=== PATIENT | male | born 1975 | race Caucasian/White ===

== ENCOUNTER 2017-02-04 15:26 | Inpatient (IN) | payer SELFPAY ==
[~2017-02-04] VITALS: Ht 180.3 cm; Wt 64.9 kg
[~2017-02-04 15:26] MED LIST: ACET325T21 PO; ASEN5TAB7 SL; BUSP5TAB PO; CALC600T4 PO; CARI350T PO; CEFU500T46 PO; CEPH-264 PO; DEXL60CA2 PO; DIVA500T4 PO; DOXY100C2 PO; FLUT1DIS3 IH; GABA-586 PO; GABA600T2 PO; INDO50CA PO; IPRA4AER IH; LOSA100T6 PO; OLAN20TA3 PO; OXYC5TAB95 PO; OXYM10TA28 PO; OXYM20TA17 PO; PANT40TA3 PO; QUET300T5 PO; TRAZ100T12 PO; VALP250D PO
[2017-02-04 17:56] VITALS: BP 105/65
[2017-02-04] MEDS: HYDROmorphone 2 MG TABLET PO PRN ×2 (18:37→22:52)
[2017-02-04] MEDS ORDERED: VANCOMYCIN 1.75 GM in IV DEXTROSE 5% 500 ML IV ONE (19:00)
[2017-02-04] MEDS: VANCOMYCIN PER PHARMACY MC PRN (19:06)
[2017-02-04 19:30] VITALS: BP 112/71
[2017-02-04] MEDS: NICOTINE 21MG PATCH. TD SCH (21:51)
[2017-02-04] MEDS: VANCOMYCIN 1 GM in IV DEXTROSE 5% 250 ML IV SCH (21:51)
[2017-02-04] MEDS: ACETAMINOPHEN 500 MG TABLET PO PRN (21:56)
[2017-02-04 23:18] VITALS: BP 119/67
[2017-02-04] MEDS: HYDROCORTISONE 1% TOPICAL OINTMENT 30GM TUBE. TP PRN (23:51)
[2017-02-05] MEDS: HYDROmorphone 2 MG TABLET PO PRN ×5 (03:16→21:15)
[2017-02-05 03:23] VITALS: BP 98/63
[2017-02-05] MEDS: VANCOMYCIN 1 GM in IV DEXTROSE 5% 250 ML IV SCH ×3 (04:38→21:04)
[2017-02-05] MEDS: ACETAMINOPHEN 500 MG TABLET PO PRN ×2 (04:46→21:04)
[2017-02-05 05:07] LABS: BASO % 1 % (0-3); EOS % 1 % (0-3); HEMATOCRIT 35.2 % (39.0-53.0); HEMOGLOBIN 11.6 g/dL (13.0-17.5); LYMPH # 2.2 x10^3/uL (1.0-4.8); LYMPH % 43 % (24-48); MEAN CORPUSCULAR HEMOGLOBIN 26 pg (25-35); MEAN CORPUSCULAR HGB CONC 33 g/dL (31-37); MEAN CORPUSCULAR VOLUME 77 fL (79-100); MONO % 8 % (0-9); NEUT % 47 % (31-73); PLATELET COUNT 240 x10^3/uL (140-400); RED BLOOD COUNT 4.55 x10^6/uL (4.30-5.70); RED CELL DISTRIBUTION WIDTH 18.3 % (11.5-14.5); WHITE BLOOD COUNT 5.1 x10^3/uL (4.0-11.0)
[2017-02-05 05:19] LABS: ALBUMIN 2.5 g/dL (3.4-5.0); ALBUMIN/GLOBULIN RATIO 0.6 (1.0-1.7); CALCIUM 8.3 mg/dL (8.5-10.1); CREATININE 0.8 mg/dL (0.7-1.3); GFR 106.5; POTASSIUM 4.1 mmol/L (3.5-5.1); TOTAL BILIRUBIN 0.2 mg/dL (0.2-1.0); TOTAL PROTEIN 6.6 g/dL (6.4-8.2)
[2017-02-05 07:00] VITALS: BP 106/73
[2017-02-05] MEDS: NICOTINE 21MG PATCH. TD SCH (08:17)
[2017-02-05] MEDS ORDERED: FLU VACC QS2017-18 (36MOS+)/PF 0.5 ML SYRINGE. VAX IM ONE (10:00)
--- NOTE | 2017-02-05 10:46 | PDOC2 ---
CONSULT Date of Consult Date of Consult DATE: 02/05/17 TIME: 10:42 History of Present Illness Reason for Visit: Pt is a 42 year old male who was admitted due to a suspected chin abscess/ cellulitis. He states the area swelled up significantly. The ER MD at [facility] did I and D which did help some, but don't think its complete. He is able to eat without difficulty and only complains of left index finger pain. Past Medical History Cardiovascular: HTN Psych: Bipolar, Depression, Schizophrenia Musculoskeletal: Other Past Surgical History Past Surgical History inguinal hernia repair Past Surgical History: No pertinent history Family History Family History: Coronary Artery Disease Social History ALCOHOL: none Drugs: Other Lives: Alone Current Medications Current Medications Current Medications Vancomycin HCl (Vanco Per Pharmacy) 1 each PRN DAILY PRN MC SEE COMMENTS Last administered on 02/04/17 19:06; Start 02/04/17 at 18:00 Acetaminophen (Tylenol) 1,000 mg PRN QID PRN PO MILD PAIN Last administered on 02/05/17 04:46; Start 02/04/17 at 18:00 Hydromorphone HCl (Dilaudid) 2 mg PRN Q4HRS PRN PO PAIN Last administered on 08:18; Start 02/04/17 at 18:00 Vancomycin HCl 1.75 gm/Dextrose 500 ml @ 250 mls/hr 1X ONCE IV ; Start at 19:00; Stop 02/04/17 at 20:59; Status Cancel Vancomycin HCl 1 gm/Dextrose 250 ml @ 250 mls/hr Q8H IV Last administered on 02/05/17 04:38; Start 02/04/17 at 20:00 Vancomycin HCl 1 each 1X ONCE MC ; Start 02/05/17 at 11:30; Stop 02/05/17 at 11:31 Nicotine (Nicoderm Cq 21mg) 1 patch DAILY TD Last administered on 02/05/17 08 :17; Start 02/04/17 at 20:00 Hydrocortisone (Cortaid) 1 rubi PRN QID PRN TP ITCHING Last administered on 23:51; Start 02/04/17 at 22:00 Influenza Virus Vaccine Quadrival (Fluarix Quad [id number] Syringe) 0.5 ml ONCE ONCE VAX IM ; Start 02/05/17 at 10:00; Stop 02/05/17 at 10:01; Status DC Active Scripts Active Cefuroxime (Cefuroxime Axetil) 500 Mg Tablet 1 Tab PO QID Reported Soma (Carisoprodol) 350 Mg Tablet 1 Tab PO BID Protonix (Pantoprazole Sodium) 40 Mg Tablet.dr 1 Tab PO DAILY Indomethacin 50 Mg Capsule 50 Mg PO BID Opana Er (Oxymorphone Hcl) 20 Mg Tab.er.12h 20 Mg PO BID Seroquel (Quetiapine Fumarate) 300 Mg Tablet 1 Tab PO HS Losartan Potassium 100 Mg Tablet 50 Mg PO HS Zyprexa (Olanzapine) 20 Mg Tablet 20 Mg PO DAILY Depakote Er (Divalproex Sodium) 500 Mg Tab.er.24h 1 Tab PO BID Allergies Allergies: Coded Allergies: oxycodone (Verified Allergy, Intermediate, 10/06/16) tolerates morphine ROS General: No: Chills, Night Sweats, Fatigue, Malaise, Appetite, Other PSYCHOLOGICAL ROS: No: Anxiety, Behavioral Disorder, Concentration difficultie , Decreased libido, Depression, Disorientation, Hallucinations, Hostility, Irritablity, Memory difficulties, Mood Swings, Obsessive thoughts, Physical abuse, Sexual abuse, Sleep disturbances, Suicidal ideation, Other Eyes: No Blurry vision, No Decreased vision, No Double vision, No Dry eyes, No Excessive tearing, No Eye Pain, No Itchy Eyes, No Loss of vision, No Photophobia , No Scotomata, No Uses contacts, No Uses glasses, No Other HEENT: YES: Other (chin abscess as per HPI) ALLERGY AND IMMUNOLOGY: No: Hives, Insect Bite Sensitivity, Itchy/Watery Eyes, Nasal Congestion, Post Nasal Drip, Seasonal Allergies, Other Hematological and Lymphatic: No: Bleeding Problems, Blood Clots, Blood Transfusions, Brusing, Night Sweats, Pallor, Swollen Lymph Nodes, Other ENDOCRINE: No: Breast Changes, Galactorrhea, Hair Pattern Changes, Hot Flashes , Malaise/lethargy, Mood Swings, Palpitations, Polydipsia/polyuria, Skin Changes , Temperature Intolerance, Unexpected Weight Changes, Other Respiratory: No: Cough, Hemoptysis, Orthopnea, Pleuritic Pain, Shortness of breath, SOB with excertion, Sputum Changes, Stridor, Tachypnea, Wheezing, Other Cardiovascular: No Chest Pain, No Palpitations, No Orthopnea, No Paroxysmal Noc. Dyspnea, No Edema, No Lt Headedness, No Other Gastrointestinal: No Nausea, No Vomiting, No Abdominal Pain, No Diarrhea, No Constipation, No Melena, No Hematochezia, No Other Musculoskeletal: Yes Other (L index finger pain) Neurological: No Behavorial Changes, No Bowel/Bladder ControlChng, No Confusion , No Dizziness, No Gait Disturbance, No Headaches, No Impaired Coord/balance, No Memory Loss, No Numbness/Tingling, No Seizures, No Speech Problems, No Tremors, No Visual Changes, No Weakness, No Other Skin: No Dry Skin, No Eczema, No Hair Changes, No Lumps, No Mole Changes, No Mottling, No Nail Changes, No Pruritus, No Rash, No Skin Lesion Changes, No Other, No Acne Physical Exam General: Alert, Oriented X3 HEENT: Atraumatic, Other (chin with area of erythema, small fluctuance, do not see intraoral involvement) Lungs: Clear to auscultation Heart: Regular rate Abdomen: Normal bowel sounds Extremities: Other (L index finger with pain/swelling) Neuro: Normal speech Psych/Mental Status: Mental status NL Vitals VITALS Vital Signs Date Time Temp Pulse Resp B/P (MAP) Pulse Ox O2 Delivery O2 Flow Rate FiO2 02/05/17 08:18 97 Room Air 02/05/17 07:00 97.8 56 18 106/73 (84) 97.8 Labs Labs Laboratory Tests Test 02/05/17 04:30 White Blood Count 5.1 x10^3/uL (4.0-11.0) Red Blood Count 4.55 x10^6/uL (4.30-5.70) Hemoglobin 11.6 g/dL (13.0-17.5) Hematocrit 35.2 % (39.0-53.0) Mean Corpuscular Volume 77 fL (79-100) Mean Corpuscular Hemoglobin 26 pg (25-35) Mean Corpuscular Hemoglobin Concent 33 g/dL (31-37) Red Cell Distribution Width 18.3 % (11.5-14.5) Platelet Count 240 x10^3/uL (140-400) Neutrophils (%) (Auto) 47 % (31-73) Lymphocytes (%) (Auto) 43 % (24-48) Monocytes (%) (Auto) 8 % (0-9) Eosinophils (%) (Auto) 1 % (0-3) Basophils (%) (Auto) 1 % (0-3) Neutrophils # (Auto) 2.4 x10^3uL (1.8-7.7) Lymphocytes # (Auto) 2.2 x10^3/uL (1.0-4.8) Monocytes # (Auto) 0.4 x10^3/uL (0.0-1.1) Eosinophils # (Auto) 0.1 x10^3/uL (0.0-0.7) Basophils # (Auto) 0.0 x10^3/uL (0.0-0.2) Sodium Level 139 mmol/L (136-145) Potassium Level 4.1 mmol/L (3.5-5.1) Chloride Level 104 mmol/L (98-107) Carbon Dioxide Level 30 mmol/L (21-32) Anion Gap 5 (6-14) Blood Urea Nitrogen 13 mg/dL (8-26) Creatinine 0.8 mg/dL (0.7-1.3) Estimated GFR (Cockcroft-Gault) 106.5 BUN/Creatinine Ratio 16 (6-20) Glucose Level 90 mg/dL (70-99) Calcium Level 8.3 mg/dL (8.5-10.1) Total Bilirubin 0.2 mg/dL (0.2-1.0) Aspartate Amino Transf (AST/SGOT) 31 U/L (15-37) Alanine Aminotransferase (ALT/SGPT) 40 U/L (16-63) Alkaline Phosphatase 93 U/L (46-116) Total Protein 6.6 g/dL (6.4-8.2) Albumin 2.5 g/dL (3.4-5.0) Albumin/Globulin Ratio 0.6 (1.0-1.7) Laboratory Tests Test 02/05/17 04:30 White Blood Count 5.1 x10^3/uL (4.0-11.0) Red Blood Count 4.55 x10^6/uL (4.30-5.70) Hemoglobin 11.6 g/dL (13.0-17.5) Hematocrit 35.2 % (39.0-53.0) Mean Corpuscular Volume 77 fL (79-100) Mean Corpuscular Hemoglobin 26 pg (25-35) Mean Corpuscular Hemoglobin Concent 33 g/dL (31-37) Red Cell Distribution Width 18.3 % (11.5-14.5) Platelet Count 240 x10^3/uL (140-400) Neutrophils (%) (Auto) 47 % (31-73) Lymphocytes (%) (Auto) 43 % (24-48) Monocytes (%) (Auto) 8 % (0-9) Eosinophils (%) (Auto) 1 % (0-3) Basophils (%) (Auto) 1 % (0-3) Neutrophils # (Auto) 2.4 x10^3uL (1.8-7.7) Lymphocytes # (Auto) 2.2 x10^3/uL (1.0-4.8) Monocytes # (Auto) 0.4 x10^3/uL (0.0-1.1) Eosinophils # (Auto) 0.1 x10^3/uL (0.0-0.7) Basophils # (Auto) 0.0 x10^3/uL (0.0-0.2) Sodium Level 139 mmol/L (136-145) Potassium Level 4.1 mmol/L (3.5-5.1) Chloride Level 104 mmol/L (98-107) Carbon Dioxide Level 30 mmol/L (21-32) Anion Gap 5 (6-14) Blood Urea Nitrogen 13 mg/dL (8-26) Creatinine 0.8 mg/dL (0.7-1.3) Estimated GFR (Cockcroft-Gault) 106.5 BUN/Creatinine Ratio 16 (6-20) Glucose Level 90 mg/dL (70-99) Calcium Level 8.3 mg/dL (8.5-10.1) Total Bilirubin 0.2 mg/dL (0.2-1.0) Aspartate Amino Transf (AST/SGOT) 31 U/L (15-37) Alanine Aminotransferase (ALT/SGPT) 40 U/L (16-63) Alkaline Phosphatase 93 U/L (46-116) Total Protein 6.6 g/dL (6.4-8.2) Albumin 2.5 g/dL (3.4-5.0) Albumin/Globulin Ratio 0.6 (1.0-1.7) Assessment/Plan Assessment/Plan Chin abscess, pt on regular diet; will make NPO after midnight and plan drainage in AM; ask ortho to see for paronychia DELIA OROURKE MD Feb 05, 2017 10:46
[2017-02-05 11:00] VITALS: BP 105/70
--- NOTE | 2017-02-05 12:22 | HP ---
ADMIT DATE: 02/04/2017 HISTORY OF PRESENT ILLNESS: The patient is a 42-year-old male patient, whom I have seen yesterday at [facility]. He apparently was seen initially on 02/02/2017 where he presented with infection in his chin and also his right index finger stating that he had an MRSA infection in the past. At that time, clinical examination showed that he has a pointing abscess under his chin and that he attempted to drain on his own. The abscess appears to have started as some folliculitis. He does have adenopathy in the neck. 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 The abscess was incised by 11 blade, prepped with Betadine and incised and about 1 mL white pus was removed. The wounds were cleaned with Betadine and dressing applied. The patient was given a prescription for Bactrim-DS twice a day for 10 days with Polysporin ointment to be applied 4 times a day to both wounds, advised to keep them dry and clean. He did not even fill his prescription. He came back on 02/04/2017 complaining that the abscess is not healing and was admitted and apparently the chin area though in size is now becoming more swollen again. Culture tip was placed in the wound and was used to break up some of the loculation. About 10 mL of greenish pus was then drained and was sent for culture and sensitivity. However, the abscess needs to be incised and drained properly and as there are no surgeons in the hospital, the patient was transferred to [facility] to consult surgical team, to open this up and perhaps pack it with iodoform gauze to prevent recurrence. PAST MEDICAL HISTORY: Significant for depression, questionable schizoaffective disorder, severe osteoarthritis, left hip joint and hypertension. PAST SURGICAL HISTORY: Left eye surgery, incision and drainage of his chin abscess and left index finger abscess. ALLERGIES: HE IS ALLERGIC TO OXYCODONE. MEDICATIONS: He is currently on following medications: He is on Soma 350 mg twice a day, divalproex 500 mg twice a day, losartan potassium 100 mg once a day, olanzapine 20 mg once a day, oxymorphone 20 mg extended release twice a day, Protonix 40 mg once a day and quetiapine fumarate 300 mg once a day. He was started on IV vancomycin and was transferred here to continue with IV vancomycin for the pharmacy to adjust it. PHYSICAL EXAMINATION: GENERAL: On examining him today, he looked well and was clearly in no apparent respiratory distress, pale. No jaundice, cyanosis, or thyromegaly. No jugular venous distention. No limb edema. VITAL SIGNS: Her heart rate was 58, blood pressure was 98/63, temperature was 97.7, respiratory rate was 18 and oxygen saturation was 97%. HEAD, EYES, EARS, NOSE AND THROAT: Showed normocephalic, atraumatic. NECK: Showed he has chin abscess, is red, swollen, and tender to touch. HEART: Showed normal first and second heart sounds with no gallop, rub or murmur. CHEST: Clear to auscultation. No crepitation or rhonchi. ABDOMEN: Distended, soft, nontender. NEUROLOGIC: He was sleepy, but arousable. All cranial nerves intact. EXTREMITIES: He moves extremities without difficulty. SKIN: He has chin abscess and also left index finger paronychia that he claims as a sliver that went in and he was unable to retrieve it. LABORATORY DATA: Showed a serum sodium 139, potassium 4.1, chloride 104, bicarbonate 30, anion gap of 5, BUN 13, creatinine 0.8. Estimated GFR was 160 mL per minute. He has glucose of 90, calcium was 8.3. Total bilirubin, AST, ALT, alkaline phosphatase were normal. His total protein was 6.6, albumin 2.6. His white cell count was 5100, hemoglobin 11.6, hematocrit 35, MCV 77 and platelet count 240,000. ASSESSMENT AND PLAN: We did consult the surgical team. Apparently, he was seen by Dr. Sandoval. Apparently, he will be kept n.p.o. from midnight, will be drained tomorrow morning and apparently for his left index paronychia, the orthopedic surgeons were consulted. Meanwhile, we will continue with pain management in the form of hydromorphone as well as his vancomycin as adjusted by the pharmacist. He apparently developed a skin rash on his back for which he is now on hydrocortisone cream. SHAE MANLEY MD DR: AIDEE/jessica JOB#: [id number] / [id number]
[2017-02-05] MEDS: VANCOMYCIN PER PHARMACY MC PRN (12:25)
[2017-02-05 15:00] VITALS: BP 114/76
--- NOTE | 2017-02-05 15:51 | PDOC2 ---
GIORGI GREY 02/05/17 1550: CONSULT Date of Consult Date of Consult DATE: 02/05/17 TIME: 15:39 Reason for Consult Reason for Consult: left index finger paronychia Referring Physician Referring Physician: Dr. Patrick Identification/Chief Complaint Chief Complaint left index finger pain and welling Problems: Source Source: Chart review, Patient History of Present Illness Reason for Visit: The patient is a 42 year old male admitted with chin abscess and left index finger paronychia. He states the finger became painful about three weeks ago and then began to swell. He does sixto and is guessing that a piece of fiberglass got stuck under his cuticle, which has caused it to swell. He states he tried to squeeze the finger to get it out, but was unsuccessful. He states the chin abscess started as an ingrown hair about a week ago. He went to [facility] 02/02/17 where the both the chin abscess and finger were lanced and drained. He went home and then returned to the ED the next day because the areas continued to swell. He was then transferred to [facility] for surgical management. Past Medical History Cardiovascular: HTN Psych: Bipolar, Depression, Schizophrenia Musculoskeletal: Osteoarthritis Past Surgical History Past Surgical History: Other (perirectal abscess I&D 09/2016) Family History Family History: Coronary Artery Disease Social History ALCOHOL: none Drugs: Other Lives: Alone Current Medications Current Medications Current Medications Vancomycin HCl (Vanco Per Pharmacy) 1 each PRN DAILY PRN MC SEE COMMENTS Last administered on 02/05/17 12:25; Start 02/04/17 at 18:00 Acetaminophen (Tylenol) 1,000 mg PRN QID PRN PO MILD PAIN Last administered on 02/05/17 04:46; Start 02/04/17 at 18:00 Hydromorphone HCl (Dilaudid) 2 mg PRN Q4HRS PRN PO PAIN Last administered on 13:12; Start 02/04/17 at 18:00 Vancomycin HCl 1.75 gm/Dextrose 500 ml @ 250 mls/hr 1X ONCE IV ; Start at 19:00; Stop 02/04/17 at 20:59; Status Cancel Vancomycin HCl 1 gm/Dextrose 250 ml @ 250 mls/hr Q8H IV Last administered on 02/05/17 13:13; Start 02/04/17 at 20:00 Vancomycin HCl 1 each 1X ONCE MC ; Start 02/05/17 at 11:30; Stop 02/05/17 at 11:31; Status DC Nicotine (Nicoderm Cq 21mg) 1 patch DAILY TD Last administered on 02/05/17 08 :17; Start 02/04/17 at 20:00 Hydrocortisone (Cortaid) 1 rubi PRN QID PRN TP ITCHING Last administered on 23:51; Start 02/04/17 at 22:00 Influenza Virus Vaccine Quadrival (Fluarix Quad [id number] Syringe) 0.5 ml ONCE ONCE VAX IM Last administered on 02/05/17 13:15; Start 02/05/17 at 10:00; Stop 02/05/17 at 10:01; Status DC Ondansetron HCl (Zofran) 4 mg PRN Q6HRS PRN IV NAUSEA/VOMITING; Start at 07:00; Stop 02/07/17 at 06:59 Fentanyl Citrate (Fentanyl 2ml Vial) 25 mcg PRN Q5MIN PRN IV MILD PAIN; Start 02/06/17 at 07:00; Stop 02/07/17 at 06:59 Fentanyl Citrate (Fentanyl 2ml Vial) 50 mcg PRN Q5MIN PRN IV MODERATE PAIN; Start 02/06/17 at 07:00; Stop 02/07/17 at 06:59 Ringer's Solution 1,000 ml @ 30 mls/hr Q24H IV ; Start 02/06/17 at 07:00; Stop 02/06/17 at 18:59 Lidocaine HCl (Xylocaine-Mpf 1% Vial) 2 ml PRN 1X PRN ID IV START; Start 02/06 at 07:00; Stop 02/07/17 at 06:59 Prochlorperazine Edisylate (Compazine) 5 mg PACU PRN PRN IV NAUSEA, MRX1; Start 02/06/17 at 07:00; Stop 02/07/17 at 06:59 Active Scripts Active Cefuroxime (Cefuroxime Axetil) 500 Mg Tablet 1 Tab PO QID Reported Soma (Carisoprodol) 350 Mg Tablet 1 Tab PO BID Protonix (Pantoprazole Sodium) 40 Mg Tablet.dr 1 Tab PO DAILY Indomethacin 50 Mg Capsule 50 Mg PO BID Opana Er (Oxymorphone Hcl) 20 Mg Tab.er.12h 20 Mg PO BID Seroquel (Quetiapine Fumarate) 300 Mg Tablet 1 Tab PO HS Losartan Potassium 100 Mg Tablet 50 Mg PO HS Zyprexa (Olanzapine) 20 Mg Tablet 20 Mg PO DAILY Depakote Er (Divalproex Sodium) 500 Mg Tab.er.24h 1 Tab PO BID Allergies Allergies: Coded Allergies: oxycodone (Verified Allergy, Intermediate, 10/06/16) tolerates morphine Physical Exam General: Alert, Oriented X3, Cooperative, No acute distress HEENT: Atraumatic, EOMI Lungs: Normal air movement Heart: Regular rate Abdomen: Soft Extremities: No clubbing, No cyanosis, Normal pulses Skin: No rashes, Other (Chin abscess with swelling, erythema, and tenderness) Neuro: Normal speech, Sensation intact Psych/Mental Status: Mental status NL, Mood NL MUSCULOSKELETAL: Other (There is a left index finger paronychia with swelling, erythema, and drainage. There is a small eschar from previous attempt at I&D. No tenderness to palpation of finger pad. Pain with attempted motion of DIP. States there is mild numbness to index fingertip d/t swelling. Otherwise, sensation intact. Peripheral pulses intact.) Vitals VITALS Vital Signs Date Time Temp Pulse Resp B/P (MAP) Pulse Ox O2 Delivery O2 Flow Rate FiO2 02/05/17 13:12 97 Room Air 02/05/17 11:00 98.0 52 18 105/70 (82) 98.0 Labs Labs Laboratory Tests Test 02/04/17 20:30 02/05/17 04:30 02/05/17 11:20 Nasal Screen MRSA (PCR) Negative (Negative) White Blood Count 5.1 x10^3/uL (4.0-11.0) Red Blood Count 4.55 x10^6/uL (4.30-5.70) Hemoglobin 11.6 g/dL (13.0-17.5) Hematocrit 35.2 % (39.0-53.0) Mean Corpuscular Volume 77 fL (79-100) Mean Corpuscular Hemoglobin 26 pg (25-35) Mean Corpuscular Hemoglobin Concent 33 g/dL (31-37) Red Cell Distribution Width 18.3 % (11.5-14.5) Platelet Count 240 x10^3/uL (140-400) Neutrophils (%) (Auto) 47 % (31-73) Lymphocytes (%) (Auto) 43 % (24-48) Monocytes (%) (Auto) 8 % (0-9) Eosinophils (%) (Auto) 1 % (0-3) Basophils (%) (Auto) 1 % (0-3) Neutrophils # (Auto) 2.4 x10^3uL (1.8-7.7) Lymphocytes # (Auto) 2.2 x10^3/uL (1.0-4.8) Monocytes # (Auto) 0.4 x10^3/uL (0.0-1.1) Eosinophils # (Auto) 0.1 x10^3/uL (0.0-0.7) Basophils # (Auto) 0.0 x10^3/uL (0.0-0.2) Sodium Level 139 mmol/L (136-145) Potassium Level 4.1 mmol/L (3.5-5.1) Chloride Level 104 mmol/L (98-107) Carbon Dioxide Level 30 mmol/L (21-32) Anion Gap 5 (6-14) Blood Urea Nitrogen 13 mg/dL (8-26) Creatinine 0.8 mg/dL (0.7-1.3) Estimated GFR (Cockcroft-Gault) 106.5 BUN/Creatinine Ratio 16 (6-20) Glucose Level 90 mg/dL (70-99) Calcium Level 8.3 mg/dL (8.5-10.1) Total Bilirubin 0.2 mg/dL (0.2-1.0) Aspartate Amino Transf (AST/SGOT) 31 U/L (15-37) Alanine Aminotransferase (ALT/SGPT) 40 U/L (16-63) Alkaline Phosphatase 93 U/L (46-116) Total Protein 6.6 g/dL (6.4-8.2) Albumin 2.5 g/dL (3.4-5.0) Albumin/Globulin Ratio 0.6 (1.0-1.7) Vancomycin Level Trough 17.7 mcg/mL (10.0-20.0) Vancomycin Last Dose Date 02/05/17 Vancomycin Last Dose Time 0400 Laboratory Tests Test 02/04/17 20:30 02/05/17 04:30 02/05/17 11:20 Nasal Screen MRSA (PCR) Negative (Negative) White Blood Count 5.1 x10^3/uL (4.0-11.0) Red Blood Count 4.55 x10^6/uL (4.30-5.70) Hemoglobin 11.6 g/dL (13.0-17.5) Hematocrit 35.2 % (39.0-53.0) Mean Corpuscular Volume 77 fL (79-100) Mean Corpuscular Hemoglobin 26 pg (25-35) Mean Corpuscular Hemoglobin Concent 33 g/dL (31-37) Red Cell Distribution Width 18.3 % (11.5-14.5) Platelet Count 240 x10^3/uL (140-400) Neutrophils (%) (Auto) 47 % (31-73) Lymphocytes (%) (Auto) 43 % (24-48) Monocytes (%) (Auto) 8 % (0-9) Eosinophils (%) (Auto) 1 % (0-3) Basophils (%) (Auto) 1 % (0-3) Neutrophils # (Auto) 2.4 x10^3uL (1.8-7.7) Lymphocytes # (Auto) 2.2 x10^3/uL (1.0-4.8) Monocytes # (Auto) 0.4 x10^3/uL (0.0-1.1) Eosinophils # (Auto) 0.1 x10^3/uL (0.0-0.7) Basophils # (Auto) 0.0 x10^3/uL (0.0-0.2) Sodium Level 139 mmol/L (136-145) Potassium Level 4.1 mmol/L (3.5-5.1) Chloride Level 104 mmol/L (98-107) Carbon Dioxide Level 30 mmol/L (21-32) Anion Gap 5 (6-14) Blood Urea Nitrogen 13 mg/dL (8-26) Creatinine 0.8 mg/dL (0.7-1.3) Estimated GFR (Cockcroft-Gault) 106.5 BUN/Creatinine Ratio 16 (6-20) Glucose Level 90 mg/dL (70-99) Calcium Level 8.3 mg/dL (8.5-10.1) Total Bilirubin 0.2 mg/dL (0.2-1.0) Aspartate Amino Transf (AST/SGOT) 31 U/L (15-37) Alanine Aminotransferase (ALT/SGPT) 40 U/L (16-63) Alkaline Phosphatase 93 U/L (46-116) Total Protein 6.6 g/dL (6.4-8.2) Albumin 2.5 g/dL (3.4-5.0) Albumin/Globulin Ratio 0.6 (1.0-1.7) Vancomycin Level Trough 17.7 mcg/mL (10.0-20.0) Vancomycin Last Dose Date 02/05/17 Vancomycin Last Dose Time 0400 Images Images Hand x-ray images and report reviewed. There is no fracture, destructive bony lesion, or foreign body seen. Soft tissue swelling of the distal index finger. Assessment/Plan Assessment/Plan Left index finger paronychia. Dr. Ordaz recommended incision and drainage of the paronychia in the operating room. Dr. Sandoval is performing I&D of the chin abscess at 1:30pm tomorrow and Dr. Ordaz will try and joint at that time to do the finger. MRI is ordered to evaluate for osteomyelitis. NPO after midnight. ADRIANNE ORDAZ MD 02/05/176: CONSULT Allergies Allergies: Coded Allergies: oxycodone (Verified Allergy, Intermediate, 10/06/16) tolerates morphine Assessment/Plan Assessment/Plan I have not yet seen the patient. However, he will be going to the OR with general surgery tomorrow for I&D of his chin. I Will try to make it to the OR as well to wash out his hand in the same setting. I will follow-up on his MRI results. GIORGI GREY Feb 05, 2017 15:50 ADRIANNE ORDAZ MD Feb 05, 2017 21:16
[2017-02-05 19:00] VITALS: BP 112/68
[2017-02-05 23:00] VITALS: BP 126/73
[2017-02-06] MEDS: HYDROCORTISONE 1% TOPICAL OINTMENT 30GM TUBE. TP PRN (01:38)
[2017-02-06] MEDS ORDERED: MORPHINE SULFATE 4 MG/ML DISP.SYRIN. IV PRN (01:45)
[2017-02-06] MEDS: HYDROmorphone 2 MG/ML VIAL IV PRN ×4 (02:26→19:55)
[2017-02-06 03:00] VITALS: BP 108/70
[2017-02-06] MEDS: VANCOMYCIN 1 GM in IV DEXTROSE 5% 250 ML IV SCH ×3 (03:59→20:04)
[2017-02-06] MEDS ORDERED: ONDANSETRON PF 4 MG/2 ML VIAL. IV PRN (07:00)
[2017-02-06] MEDS ORDERED: IV RINGERS,LACTATED 1000ML 1,000 ML IV SCH (07:00)
[2017-02-06] MEDS ORDERED: fentaNYL PF VIAL 100 MCG/2 ML VIAL IV PRN (07:00)
[2017-02-06] MEDS ORDERED: PROCHLORPERAZINE 10 MG/2 ML VIAL. IV PRN (07:00)
[2017-02-06] MEDS ORDERED: LIDOCAINE 1% PF 2 ML VIAL. ID PRN (07:00)
[2017-02-06] MEDS: NICOTINE 21MG PATCH. TD SCH (10:52)
[2017-02-06] MEDS: HYDROmorphone 2 MG TABLET PO PRN ×3 (10:53→21:35)
[2017-02-06 11:00] VITALS: BP 108/66
--- NOTE | 2017-02-06 11:03 | RAD ---
MR elbow the left index finger HISTORY: Pain and swelling for 3 weeks after a splinter. Unable to remove splinter. Left index finger paronychia. TECHNIQUE: Routine multiplanar sequences are obtained through the left index finger. FINDINGS: Soft tissue edema at the posterior aspect of the index finger, particularly at the level of the nailbed through the middle phalanx. No evidence of an organized or drainable fluid collection. Mild bone marrow edema within the distal phalanx of the index finger. However no aggressive destruction or fatty marrow replacement on the T1-weighted images. The flexor and extensor tendons are intact. No significant tendon sheath fluid. IMPRESSION: 1. Soft tissue edema and swelling at the posterior distal index finger, extending to the nailbed, compatible with cellulitis or soft tissue infection. No drainable fluid collection or abscess. 2. Marrow edema within the distal phalanx is likely reactive. No evidence of aggressive bone destruction or acute osteomyelitis. Electronically signed by: Yury Nieto MD (02/06/2017 11:01 AM) [id number]
[2017-02-06] MEDS ORDERED: FAMOTIDINE 20 MG/2 ML VIAL ONE (13:20)
[2017-02-06] MEDS ORDERED: ONDANSETRON PF 4 MG/2 ML VIAL. ONE (13:20)
[2017-02-06] MEDS ORDERED: LIDOCAINE 2% PF Vial for OR 5 ML VIAL. ONE (13:20)
[2017-02-06] MEDS ORDERED: MIDAZOLAM HCL/PF 2 MG/2 ML VIAL. ONE (13:20)
[2017-02-06] MEDS ORDERED: PROPOFOL 20 ML IV ONE (13:20)
[2017-02-06] MEDS ORDERED: fentaNYL PF VIAL 100 MCG/2 ML VIAL ONE (13:33)
[2017-02-06] MEDS ORDERED: SEVOFLURANE 31 TO 60 MINUTES. IH ONE (14:00)
--- NOTE | 2017-02-06 14:09 | PDOC4 ---
Operative Note Operative Note Operative Note: Preoperative Diagnosis: Chin abscess Postoperative Diagnosis: Same Procedure: Incision and drainage of chin abscess Surgeon: Jaime Anesthesia: Gen. EBL: 5 ml Specimen: Cultures to microbiology Drains: None Complications: None Indication: The patient is a 42-year-old gentleman who presented with an abscess of the anterior, inferior chin. He was offered surgical treatment with incision and drainage. The details and risks of surgery were discussed with the patient. The risks include bleeding, infection, recurrence, anesthetic risk, potential for additional surgery or procedure. He understands and would like to proceed. Description: Patient was taken operating room and placed supine on the operating table. Gen. anesthesia was performed. The middle chin and upper neck were shaved and prepped with ChloraPrep and draped in a standard surgical manner. With a scalpel incision was made in the fluctuant area with immediate return of purulent fluid. Cultures of this were obtained and sent to microbiology. I extended the incision short ways to facilitate drainage. The remaining abscess cavity was probed to free up any loculations and check for any tracking. The entire abscess cavity was then fully drained and irrigated with sterile saline. Hemostasis was good and no other abnormalities were noted. The cavity was then packed with half-inch gauze and a sterile dressing was applied. The patient tolerated the procedure well and sent to the recovery room in stable condition. At the end of the case all counts were correct. DELAI OROURKE MD Feb 06, 2017 14:09
[2017-02-06] MEDS: fentaNYL PF VIAL 100 MCG/2 ML VIAL IV PRN ×2 (14:34→14:48)
[2017-02-06 15:00] VITALS: BP 113/65
[2017-02-06] MEDS: VANCOMYCIN PER PHARMACY MC PRN (16:17)
[2017-02-06 19:00] VITALS: BP 113/70
--- NOTE | 2017-02-06 22:10 | PDOC ---
PROGRESS NOTES Subjective Subjective Problems overnight: had surgery this am. feels like left index finger has gone down since he flexed it earlier today and decompressed some pus out of it. MRI revealed edema of the distal phalanx, possible osteo. Objective Vital Signs Vital Signs Date Time Temp Pulse Resp B/P (MAP) Pulse Ox O2 Delivery O2 Flow Rate FiO2 02/06/17 21:35 16 96 Room Air 02/06/17 19:00 98.4 60 113/70 (84) 98.4 02/06/17 17:30 10.0 Physical Exam left hand with swelling of dip joint. drainage on fingerbed. Labs Laboratory Tests Test 02/05/17 04:30 02/05/17 11:20 White Blood Count 5.1 x10^3/uL (4.0-11.0) Red Blood Count 4.55 x10^6/uL (4.30-5.70) Hemoglobin 11.6 g/dL (13.0-17.5) Hematocrit 35.2 % (39.0-53.0) Mean Corpuscular Volume 77 fL (79-100) Mean Corpuscular Hemoglobin 26 pg (25-35) Mean Corpuscular Hemoglobin Concent 33 g/dL (31-37) Red Cell Distribution Width 18.3 % (11.5-14.5) Platelet Count 240 x10^3/uL (140-400) Neutrophils (%) (Auto) 47 % (31-73) Lymphocytes (%) (Auto) 43 % (24-48) Monocytes (%) (Auto) 8 % (0-9) Eosinophils (%) (Auto) 1 % (0-3) Basophils (%) (Auto) 1 % (0-3) Neutrophils # (Auto) 2.4 x10^3uL (1.8-7.7) Lymphocytes # (Auto) 2.2 x10^3/uL (1.0-4.8) Monocytes # (Auto) 0.4 x10^3/uL (0.0-1.1) Eosinophils # (Auto) 0.1 x10^3/uL (0.0-0.7) Basophils # (Auto) 0.0 x10^3/uL (0.0-0.2) Sodium Level 139 mmol/L (136-145) Potassium Level 4.1 mmol/L (3.5-5.1) Chloride Level 104 mmol/L (98-107) Carbon Dioxide Level 30 mmol/L (21-32) Anion Gap 5 (6-14) Blood Urea Nitrogen 13 mg/dL (8-26) Creatinine 0.8 mg/dL (0.7-1.3) Estimated GFR (Cockcroft-Gault) 106.5 BUN/Creatinine Ratio 16 (6-20) Glucose Level 90 mg/dL (70-99) Calcium Level 8.3 mg/dL (8.5-10.1) Total Bilirubin 0.2 mg/dL (0.2-1.0) Aspartate Amino Transf (AST/SGOT) 31 U/L (15-37) Alanine Aminotransferase (ALT/SGPT) 40 U/L (16-63) Alkaline Phosphatase 93 U/L (46-116) Total Protein 6.6 g/dL (6.4-8.2) Albumin 2.5 g/dL (3.4-5.0) Albumin/Globulin Ratio 0.6 (1.0-1.7) Vancomycin Level Trough 17.7 mcg/mL (10.0-20.0) Vancomycin Last Dose Date 02/05/17 Vancomycin Last Dose Time 0400 Imaging mri of distal phalanx left index finger Assessment Problems: (1) Paronychia of left index finger Plan Plan of Care The patient had a left index finger paronychia for the past three weeks. plan for i &d tomorrow am. npo after midnight. ADRIANNE MORALES MD Feb 06, 2017 22:10
[2017-02-06 23:00] VITALS: BP 116/72
[2017-02-07] VITALS (10 sets, daily range): BP systolic 109–125; BP diastolic 69–82
[2017-02-07] MEDS: HYDROmorphone 2 MG TABLET PO PRN ×3 (02:14→18:24)
[2017-02-07] MEDS: VANCOMYCIN 1 GM in IV DEXTROSE 5% 250 ML IV SCH ×2 (04:29→13:57)
[2017-02-07] MEDS: HYDROmorphone 2 MG/ML VIAL IV PRN ×4 (04:35→16:34)
[2017-02-07 06:09] LABS: CREATININE 0.8 mg/dL (0.7-1.3); GFR 106.5
[2017-02-07] MEDS: NICOTINE 21MG PATCH. TD SCH (08:31)
[2017-02-07] MEDS ORDERED: IV RINGERS,LACTATED 1000ML 1,000 ML IV SCH ×2 (09:30→10:47)
[2017-02-07] MEDS ORDERED: LIDOCAINE 2% PF Vial for OR 5 ML VIAL. ONE (09:55)
[2017-02-07] MEDS ORDERED: PROPOFOL 20 ML IV ONE (09:55)
[2017-02-07] MEDS ORDERED: ONDANSETRON PF 4 MG/2 ML VIAL. ONE (10:07)
[2017-02-07] MEDS ORDERED: SEVOFLURANE 31 TO 60 MINUTES. IH ONE (10:07)
--- NOTE | 2017-02-07 10:38 | PDOC ---
BRIEF OPERATIVE NOTE Date: Feb 07, 2017 Pre-Op Diagnosis infected left index finger Post-Op Diagnosis same Procedure Performed i &d Surgeon Adrianne Morales MD Anesthesia Type: General Blood Loss 10 cc Specimens Obtained 1 set of cultures. Findings There was denuding of the soft tissue ,and scab was removed. some brodie pus. Complications none OPerative Note 3L of saline were used to irrigate the area, mechanical debridement of the skin and soft tissue. Plan: please perform warm soapy water soaks tid and dress with a clean dressing. currently there is xeroform, cling, and coban over the finger. antibiotics per primary will ctm cultures. ADRIANNE MORALES MD Feb 07, 2017 10:38
[2017-02-07] MEDS ORDERED: fentaNYL PF VIAL 100 MCG/2 ML VIAL ONE (10:48)
[2017-02-07] MEDS: fentaNYL PF VIAL 100 MCG/2 ML VIAL IV PRN ×2 (10:51→11:03)
[2017-02-07] MEDS ORDERED: fentaNYL PF VIAL 100 MCG/2 ML VIAL IV PRN (11:00)
[2017-02-07] MEDS ORDERED: LIDOCAINE 1% PF 2 ML VIAL. ID PRN (11:00)
[2017-02-07] MEDS ORDERED: PROCHLORPERAZINE 10 MG/2 ML VIAL. IV PRN (11:00)
[2017-02-07] MEDS ORDERED: ONDANSETRON PF 4 MG/2 ML VIAL. IV PRN (11:00)
--- NOTE | 2017-02-07 11:09 | PDOC ---
NORRIS MOLINA MARINE PLUMBER 02/07/17 1109: SURGICAL PROGRESS NOTE Subjective pt down for ortho procedure not seen, wound care for chin wound Vital Signs Vital Signs Date Time Temp Pulse Resp B/P (MAP) Pulse Ox O2 Delivery O2 Flow Rate FiO2 02/07/17 11:03 20 Room Air 02/07/17 10:56 59 118/73 95 02/07/17 10:30 10 02/07/17 10:26 97.4 97.4 I&O Intake and Output 02/08/17 06:59 Intake Total 550 ml Output Total 10 ml Balance 540 ml IV Total 550 ml Estimated Blood Loss 10 ml Labs Laboratory Tests Test 02/05/17 11:20 02/07/17 04:53 Vancomycin Level Trough 17.7 mcg/mL (10.0-20.0) Vancomycin Last Dose Date 02/05/17 Vancomycin Last Dose Time 0400 Creatinine 0.8 mg/dL (0.7-1.3) Estimated GFR (Cockcroft-Gault) 106.5 Laboratory Tests Test 02/07/17 04:53 Creatinine 0.8 mg/dL (0.7-1.3) Estimated GFR (Cockcroft-Gault) 106.5 DELIA OROURKE MD 02/07/17 1125: SURGICAL PROGRESS NOTE Assessment/Plan Reviewed, continue wound care to abscess Problems: NORRIS MOLINA APRN Feb 07, 2017 11:09 DELIA OROURKE MD Feb 07, 2017 11:25
--- NOTE | 2017-02-07 14:22 | DS ---
DATE OF DISCHARGE: 02/07/2017 HOSPITAL COURSE: The patient is a 42-year-old male patient who was transferred from [facility] as he has chin abscess with cellulitis and also left index finger paronychia. He was seen in consultation by the general surgeon who incises chin abscess and drained about 5 mL that were sent for culture and sensitivity. He was seen also in consultation by the orthopedic surgeon after he had an MRI of his left index finger, which showed that his soft tissue edema and swelling at the posterior, distal index finger extending to the nailbed compatible with cellulitis or soft tissue infection. No drainable fluid collection or abscess, marrow edema within the distal phalanx is likely reactive, no evidence of aggressive bone destruction or acute osteomyelitis. The culture of the chin abscess showed growth of methicillin-sensitive Staphylococcus aureus sensitive to ciprofloxacin, clindamycin, cefuroxime, cloxacillin, dicloxacillin, nafcillin, amoxicillin, clavulanic acid and ampicillin and sulbactam. PHYSICAL EXAMINATION: GENERAL: When I examined him this afternoon, he was resting slightly propped up in bed, in no apparent respiratory distress. He was pale, but no jaundice, cyanosis or thyromegaly. No jugular venous distention. No limb edema. VITAL SIGNS: His heart rate was 60, blood pressure 125/76, temperature was 97.6, respiratory rate was 16 and oxygen saturation was 94% on room air. HEAD, EYES, EARS, NOSE AND THROAT: Showed normocephalic, atraumatic. NECK: Supple. He has an incision at his chin covered with dressing. HEART: Showed normal first and second heart sounds with no gallop, rub or murmur. CHEST: Clear to auscultation. No crepitation or rhonchi. ABDOMEN: Distended, soft, nontender. No guarding or rigidity. No organomegaly. Hernial orifices intact. Bowel sounds normal. NEUROLOGIC: He was awake, alert, responding appropriately. Cranial nerves intact. He moves extremities without difficulty. He ambulates without assistance or assistive devices. Examination of the skin showed he has dressing covering his chin as well as his left index finger. LABORATORY WORK: Showed that his BUN was 13, creatinine 0.8. White cell count was 5000, hemoglobin 11, hematocrit 35, MCV 77 and platelet count of 240,000. DISCHARGE MEDICATIONS: The patient was discharged home to continue on following medications: Soma 350 mg p.o. b.i.d., cefuroxime 500 mg twice a day, indomethacin 50 mg p.o. b.i.d., losartan potassium 50 mg once a day, olanzapine or Zyprexa 20 mg daily, oxymorphone or Opana extended release 20 mg twice a day, Protonix 40 mg once a day and quetiapine fumarate 300 mg at bedtime. He also will be discharged on Opana 10 mg immediate release 1 tablet twice a day. I gave him only 6 tablets and cefuroxime 500 mg twice a day for 10 days for his treatment of his methicillin-resistant Staphylococcus aureus as related from his chin abscess. He should follow at [facility] and/or his primary care physician, Dr. Saini. FINAL DISCHARGE DIAGNOSES: 1. Chin abscess, status post incision and drainage with growth of methicillin-sensitive Staphylococcus aureus. 2. Left index paronychia, status post incision and drainage. 3. Hypertension. 4. Polysubstance abuse. SHAE MANLEY MD DR: AIDEE/jessica JOB#: [id number] / [id number]
[2017-02-07] MEDS: ACETAMINOPHEN 500 MG TABLET PO PRN (16:33)
[2017-02-07] MEDS ORDERED: LACTOBACILLUS RHAMNOSUS GG 1 CAPSULE. PO SCH (21:00)
== END 2017-02-07 18:52 | disposition home or self-care (01) | DRG 580 ==
LOC: 4 NORTH 17:49
PROVIDERS: ADMIT Internal Medicine; ATTEND Internal Medicine
PROC: 0J910ZZ Drainage of Face Subcutaneous Tissue and Fascia, Open Approach (ICD-10-PCS; principal; 2017-02-06 13:30)
PROC: 0J9K0ZZ Drainage of Left Hand Subcutaneous Tissue and Fascia, Open Approach (ICD-10-PCS; 2017-02-07)
DX: L02.01 Cutaneous abscess of face (principal); L02.512 Cutaneous abscess of left hand; F20.9 Schizophrenia, unspecified; F31.9 Bipolar disorder, unspecified; L03.012 Cellulitis of left finger; M16.12 Unilateral primary osteoarthritis, left hip; I10 Essential (primary) hypertension; B95.61 Methicillin susceptible Staphylococcus aureus infection as the cause of diseases classified elsewhere; L73.9 Follicular disorder, unspecified; M19.90 Unspecified osteoarthritis, unspecified site; Z88.8 Allergy status to other drugs, medicaments and biological substances; Z79.899 Other long term (current) drug therapy; Z82.49 Family history of ischemic heart disease and other diseases of the circulatory system; Z86.14 Personal history of Methicillin resistant Staphylococcus aureus infection
CPT/HCPCS: 36415; 73218; 80053; 80202; 82565; 85025; 87071; 87075; 87102; 87116; 87186; 87205; 87641; 90686; J1170; J2250; J2405; J2704; J3010; J3370; J7120; S0028; J2001